=== PATIENT | female | born 1970 | race Caucasian/White ===

== ENCOUNTER 2020-01-08 21:50 | Emergency (ER) | payer MEDICARE, OTHER ==
[2020-01-08 22:03] VITALS: TEMP 97.7
[2020-01-08] MEDS ORDERED: IPRATROPIUM-ALBUTEROL 3 ML NEB INHALATION STA (22:24)
[2020-01-08] MEDS ORDERED: predniSONE 20 MG TAB PO STA (22:24)
[2020-01-08] MEDS ORDERED: ALBUTEROL NEBULIZED 2.5 MG/3 ML INHALATION STA (22:24)
[2020-01-08] MEDS ORDERED: SODIUM CHLORIDE 0.9% 500 ML 500 ML IV STA (22:24)
--- NOTE | 2020-01-08 22:31 | ED ---
SOB HPI - General Chief Complaint: Shortness of Breath Stated Complaint: COPD Issue Time Seen by Provider: 01/08/20 22:06 Source: patient Mode of arrival: ambulatory Limitations: no limitations - History of Present Illness Initial Comments: This patient is a 49-year-old woman who presents to be evaluated for which she is calling flareup of her COPD. She states that over proximally past 2-3 days she has noted an increase in wheezing, shortness of breath, and having more frequent and productive cough. She describes the sputum as white to yellow. St ates that she evaluation by her physician and was prescribed antibiotics including Ceftin and azithromycin, she had albuterol and a dose of steroid. MD Complaint: shortness of breath, cough Onset/Timin -: days(s) Severity scale (1-10): 0 Consistency: constant Improves With: nothing Worsens With: nothing Known History Of: COPD Associated Symptoms: cough, sputum production Treatments Prior to Arrival: none - Related Data Home Oxygen Therapy: No Previous Rx's Medication Instructions Recorded Albuterol Inhaler [Ventolin Hfa 2 puff INHALATION Q4HR PRN #1 01/09/20 Inhaler] inhaler predniSONE 60 mg PO DAILY #30 tab 01/09/20 Allergies Allergy/AdvReac Type Severity Reaction Status Date / Time doxycycline Allergy Rash/Hives Verified 01/08/20 22:00 Review of Systems ROS Statement: Those systems with pertinent positive or pertinent negative responses have been documented in the HPI. ROS Other: All systems not noted in ROS Statement are negative. Constitutional: Denies: fever, chills Respiratory: Reports: cough, dyspnea, wheezes Cardiovascular: Denies: chest pain, palpitations, edema, syncope Gastrointestinal: Denies: abdominal pain, nausea, vomiting, diarrhea, melena, hematochezia Genitourinary: Denies: dysuria, hematuria Musculoskeletal: Denies: back pain Skin: Denies: rash Neurological: Denies: headache Past Medical History Past Medical History: COPD History of Any Multi-Drug Resistant Organisms: None Reported Past Surgical History: Section Smoking Status: Current every day smoker Past Alcohol Use History: None Reported Past Drug Use History: None Reported General Exam Limitations: no limitations General appearance: alert, in no apparent distress Head exam: Present: atraumatic, normocephalic Eye exam: Present: normal appearance. Absent: scleral icterus, conjunctival injection Respiratory exam: Present: wheezes. Absent: respiratory distress, rales, rhonchi, stridor, accessory muscle use, decreased breath sounds, prolonged exp iratory Cardiovascular Exam: Present: regular rate, normal rhythm, normal heart sounds. Absent: systolic murmur, diastolic murmur, rubs, gallop GI/Abdominal exam: Present: soft. Absent: distended, tenderness, guarding, rebound, rigid, mass Extremities exam: Present: normal inspection, normal capillary refill. Absent: pedal edema, calf tenderness Back exam: Present: normal inspection. Absent: CVA tenderness (R), CVA tenderness (L) Neurological exam: Present: alert Skin exam: Present: warm, dry, intact, normal color. Absent: rash Course Vital Signs 01/08/20 01/08/20 01/08/20 21:58 22:34 22:51 Temperature 97.7 F Pulse Rate 93 92 Respiratory 18 22 Rate Blood Pressure 120/79 O2 Sat by Pulse 89 L Oximetry 01/08/20 23:02 Temperature Pulse Rate 99 Respiratory Rate Blood Pressure O2 Sat by Pulse Oximetry Medical Decision Making - Lab Data Result diagrams: 01/08/20 22:36 01/08/20 22:36 Lab Results 01/08/20 01/08/20 01/08/20 Range/Units 22:36 22:36 22:36 WBC 12.6 H (3.8-10.6) k/uL RBC 5.78 H (3.80-5.40) m/uL Hgb 16.0 (11.4-16.0) gm/dL Hct 49.6 H (34.0-46.0) % MCV 85.9 (80.0-100.0) fL MCH 27.6 (25.0-35.0) pg MCHC 32.2 (31.0-37.0) g/dL RDW 14.2 (11.5-15.5) % Plt Count 262 (150-450) k/uL Neutrophils % 91 % Lymphocytes % 6 % Monocytes % 1 % Eosinophils % 1 % Basophils % 1 % Neutrophils # 11.4 H (1.3-7.7) k/uL Lymphocytes # 0.7 L (1.0-4.8) k/uL Monocytes # 0.1 (0-1.0) k/uL Eosinophils # 0.1 (0-0.7) k/uL Basophils # 0.1 (0-0.2) k/uL Sodium 135 L (137-145) mmol/L Potassium 4.4 (3.5-5.1) mmol/L Chloride 103 (98-107) mmol/L Carbon Dioxide 26 (22-30) mmol/L Anion Gap 6 mmol/L BUN 12 (7-17) mg/dL Creatinine 1.19 H (0.52-1.04) mg/dL Est GFR (CKD-EPI)AfAm 62 (>60 ml/min/1.73 sqM) Est GFR (CKD-EPI)NonAf 54 (>60 ml/min/1.73 sqM) Glucose 140 H (74-99) mg/dL Plasma Lactic Acid Puma 1.2 (0.7-2.0) mmol/L Calcium 9.6 (8.4-10.2) mg/dL Total Bilirubin 0.3 (0.2-1.3) mg/dL AST 22 (14-36) U/L ALT 14 (4-34) U/L Alkaline Phosphatase 79 (38-126) U/L Troponin I (0.000-0.034) ng/mL NT-Pro-B Natriuret Pep pg/mL Total Protein 7.1 (6.3-8.2) g/dL Albumin 4.3 (3.5-5.0) g/dL 01/08/20 01/08/20 Range/Units 22:36 22:36 WBC (3.8-10.6) k/uL RBC (3.80-5.40) m/uL Hgb (11.4-16.0) gm/dL Hct (34.0-46.0) % MCV (80.0-100.0) fL MCH (25.0-35.0) pg MCHC (31.0-37.0) g/dL RDW (11.5-15.5) % Plt Count (150-450) k/uL Neutrophils % % Lymphocytes % % Monocytes % % Eosinophils % % Basophils % % Neutrophils # (1.3-7.7) k/uL Lymphocytes # (1.0-4.8) k/uL Monocytes # (0-1.0) k/uL Eosinophils # (0-0.7) k/uL Basophils # (0-0.2) k/uL Sodium (137-145) mmol/L Potassium (3.5-5.1) mmol/L Chloride (98-107) mmol/L Carbon Dioxide (22-30) mmol/L Anion Gap mmol/L BUN (7-17) mg/dL Creatinine (0.52-1.04) mg/dL Est GFR (CKD-EPI)AfAm (>60 ml/min/1.73 sqM) Est GFR (CKD-EPI)NonAf (>60 ml/min/1.73 sqM) Glucose (74-99) mg/dL Plasma Lactic Acid Puma (0.7-2.0) mmol/L Calcium (8.4-10.2) mg/dL Total Bilirubin (0.2-1.3) mg/dL AST (14-36) U/L ALT (4-34) U/L Alkaline Phosphatase (38-126) U/L Troponin I <0.012 (0.000-0.034) ng/mL NT-Pro-B Natriuret Pep 23 pg/mL Total Protein (6.3-8.2) g/dL Albumin (3.5-5.0) g/dL - EKG Data -: EKG Interpreted by Ms EKG shows normal: sinus rhythm, axis (Normal), intervals (Normal), QRS complexes (Normal), ST-T waves (Normal) Rate: normal (92 bpm) Interpretation: normal EKG Disposition Clinical Impression: COPD exacerbation Disposition: HOME SELF-CARE Condition: Good Instructions (If sedation given, give patient instructions): COPD (Chronic Obstructive Pulmonary Disease) (ED) Prescriptions: predniSONE 60 mg PO DAILY #30 tab Albuterol Inhaler [Ventolin Hfa Inhaler] 2 puff INHALATION Q4HR PRN #1 inhaler PRN Reason: Wheezing Is patient prescribed a controlled substance at d/c from ED?: No Referrals: None,Stated [REFERRING] - 1-2 days
[2020-01-08 22:46] LABS: Basophils # (A) 0.1 k/uL (0-0.2); Basophils % (A) 1 %; Eosinophils # (A) 0.1 k/uL (0-0.7); Eosinophils % (A) 1 %; HCT 49.6 % (34.0-46.0); Lymphocytes # (A) 0.7 k/uL (1.0-4.8); Lymphocytes % (A) 6 %; MCH 27.6 pg (25.0-35.0); MCHC 32.2 g/dL (31.0-37.0); MCV 85.9 fL (80.0-100.0); Monocytes # (A) 0.1 k/uL (0-1.0); Monocytes % (A) 1 %; Neutrophils # (A) 11.4 k/uL (1.3-7.7); Neutrophils % (A) 91 %; Platelet Count 262 k/uL (150-450); RBC 5.78 m/uL (3.80-5.40); RDW 14.2 % (11.5-15.5); WBC 12.6 k/uL (3.8-10.6)
[2020-01-08 22:57] LABS: Albumin 4.3 g/dL (3.5-5.0); Calcium 9.6 mg/dL (8.4-10.2); Potassium 4.4 mmol/L (3.5-5.1); Total Bilirubin 0.3 mg/dL (0.2-1.3); Total Protein 7.1 g/dL (6.3-8.2)
--- NOTE | 2020-01-08 22:59 | XR ---
EXAMINATION TYPE: XR chest 2V DATE OF EXAM: 01/08/2020 COMPARISON: NONE HISTORY: Difficulty breathing TECHNIQUE: 2 views FINDINGS: Heart and mediastinum are normal. Lungs are clear. Diaphragm is normal. Bony thorax appears normal. There are chest leads. IMPRESSION: Normal chest.
[2020-01-09 00:38] VITALS: BP 105/75; PULSE 104; RESP 18
== END 2020-01-09 00:39 | disposition home or self-care (01) ==
LOC: EC 21:50
DX: J44.1 Chronic obstructive pulmonary disease with (acute) exacerbation (principal); F17.200 Nicotine dependence, unspecified, uncomplicated; Z88.1 Allergy status to other antibiotic agents
CPT/HCPCS: 99285; 96360; 36415; 94640; 93005; 83880; 80053; 83605; 84484; 85025; 71046; J7512

== ENCOUNTER 2020-05-22 22:36 | Observation (INO) | payer MEDICARE, OTHER ==
[2020-05-22] MEDS ORDERED: IPRATROPIUM-ALBUTEROL 3 ML NEB INHALATION STA (22:55)
[2020-05-22] MEDS ORDERED: ALBUTEROL NEBULIZED 2.5 MG/3 ML INHALATION STA (22:55)
[2020-05-22] MEDS ORDERED: predniSONE 20 MG TAB PO STA (22:56)
--- NOTE | 2020-05-22 23:00 | ED ---
SOB HPI - General Chief Complaint: Shortness of Breath Stated Complaint: FARZAD Time Seen by Provider: 05/22/20 22:42 Source: patient, EMS Mode of arrival: EMS Limitations: no limitations - History of Present Illness Initial Comments: Patient's 50-year-old woman history of COPD, who presents with what she believes is a flareup of the same. She states that 2-3 days ago she started having increasing wheeze, shortness of breath, a little bit of cough, and a tight feeling in her chest. Patient has not noted fever or chills. No chest pain. No change in urination or bowel movements. No leg pain or swelling. MD Complaint: shortness of breath, cough Onset/Timin -: days(s) Severity scale (1-10): 0 Consistency: constant Improves With: nothing Worsens With: nothing Known History Of: COPD Associated Symptoms: cough Treatments Prior to Arrival: oxygen - Related Data Home Oxygen Therapy: No Home Medications Medication Instructions Recorded Confirmed Advair Unknown Dose 1 puff INHALATION RT-DAILY 05/22/20 05/22/20 Albuterol Inhaler [Ventolin Hfa 2 puff INHALATION RT-Q4H PRN 05/22/20 05/22/20 Inhaler] Albuterol Nebulized [Ventolin 2.5 mg INHALATION RT-QID PRN 05/22/20 05/22/20 Nebulized] Anxiety Unknown 1 tab PO DAILY PRN 05/22/20 05/22/20 Ergocalciferol (Vitamin D2) 1,250 mcg PO Q7D 05/22/20 05/22/20 [Vitamin D2 (50,000 Iu)] Ibuprofen [Motrin Ib] 200 mg PO Q8H PRN 05/22/20 05/22/20 Paxil Unknown Dose 1 tab PO DAILY 05/22/20 05/22/20 Tessalon Perles Unknown Dose 1 tab PO DAILY PRN 05/22/20 05/22/20 Allergies Allergy/AdvReac Type Severity Reaction Status Date / Time doxycycline Allergy Rash/Hives Verified 05/22/20 23:05 Review of Systems ROS Statement: Those systems with pertinent positive or pertinent negative responses have been documented in the HPI. ROS Other: All systems not noted in ROS Statement are negative. Constitutional: Denies: fever, chills ENT: Denies: throat pain, congestion Respiratory: Reports: cough, dyspnea, wheezes Cardiovascular: Denies: chest pain, palpitations, orthopnea, edema, syncope Gastrointestinal: Denies: abdominal pain, nausea, vomiting, diarrhea, melena, hematochezia Genitourinary: Denies: dysuria, hematuria Musculoskeletal: Denies: back pain Skin: Denies: rash Neurological: Denies: headache, weakness, numbness Past Medical History Past Medical History: COPD History of Any Multi-Drug Resistant Organisms: None Reported Past Surgical History: Section Smoking Status: Current every day smoker Past Alcohol Use History: None Reported Past Drug Use History: None Reported - Past Family History Mother Additional Family Medical History / Comment(s): ETOH depression General Exam Limitations: no limitations General appearance: alert, in no apparent distress Head exam: Present: atraumatic, normocephalic Eye exam: Present: normal appearance. Absent: scleral icterus, conjunctival injection ENT exam: Present: normal oropharynx Neck exam: Present: normal inspection Respiratory exam: Present: respiratory distress, wheezes, accessory muscle use, decreased breath sounds, prolonged expiratory. Absent: rales, rhonchi, stridor Cardiovascular Exam: Present: normal rhythm, tachycardia, normal heart sounds. Absent: systolic murmur, diastolic murmur, rubs, gallop GI/Abdominal exam: Present: soft. Absent: distended, tenderness, guarding, rebound, rigid, mass Extremities exam: Present: normal inspection, normal capillary refill. Absent: pedal edema, calf tenderness Back exam: Present: normal inspection. Absent: CVA tenderness (R), CVA tenderness (L) Neurological exam: Present: alert Skin exam: Present: warm, dry, intact, normal color. Absent: rash Course Vital Signs 05/22/20 05/22/20 05/22/20 22:38 22:43 23:00 Temperature 97.6 F Pulse Rate 110 H Respiratory 22 20 Rate Blood Pressure 131/100 131/100 118/87 O2 Sat by Pulse 98 98 96 Oximetry 05/22/20 05/22/20 05/22/20 23:13 23:21 23:30 Temperature Pulse Rate 110 H 128 H 106 H Respiratory 18 Rate Blood Pressure 136/109 O2 Sat by Pulse 98 Oximetry 05/23/20 05/23/20 05/23/20 00:47 00:51 01:02 Temperature Pulse Rate 124 H 120 H 100 Respiratory 18 Rate Blood Pressure 117/86 O2 Sat by Pulse 96 Oximetry 05/23/20 05/23/20 05/23/20 02:00 03:00 03:39 Temperature 97.8 F Pulse Rate 101 H 97 97 Respiratory 18 18 18 Rate Blood Pressure 121/76 O2 Sat by Pulse 96 Oximetry Medical Decision Making - Lab Data Result diagrams: 05/22/20 23:18 05/23/20 00:01 Lab Results 05/22/20 05/22/20 05/22/20 Range/Units 23:18 23:18 23:18 WBC 12.7 H (3.8-10.6) k/uL RBC 5.45 H (3.80-5.40) m/uL Hgb 15.6 (11.4-16.0) gm/dL Hct 48.2 H (34.0-46.0) % MCV 88.4 (80.0-100.0) fL MCH 28.6 (25.0-35.0) pg MCHC 32.4 (31.0-37.0) g/dL RDW 13.3 (11.5-15.5) % Plt Count 222 (150-450) k/uL MPV 10.8 Neutrophils % 64 % Lymphocytes % 21 % Monocytes % 6 % Eosinophils % 6 % Basophils % 1 % Neutrophils # 8.2 H (1.3-7.7) k/uL Lymphocytes # 2.7 (1.0-4.8) k/uL Monocytes # 0.8 (0-1.0) k/uL Eosinophils # 0.8 H (0-0.7) k/uL Basophils # 0.1 (0-0.2) k/uL PT 10.0 (9.0-12.0) sec INR 0.9 (<1.2) APTT 23.3 (22.0-30.0) sec D-Dimer 0.36 (<0.60) mg/L FEU Sodium (137-145) mmol/L Potassium (3.5-5.1) mmol/L Chloride (98-107) mmol/L Carbon Dioxide (22-30) mmol/L Anion Gap mmol/L BUN (7-17) mg/dL Creatinine (0.52-1.04) mg/dL Est GFR (CKD-EPI)AfAm (>60 ml/min/1.73 sqM) Est GFR (CKD-EPI)NonAf (>60 ml/min/1.73 sqM) Glucose (74-99) mg/dL Plasma Lactic Acid Puma 1.1 (0.7-2.0) mmol/L Calcium (8.4-10.2) mg/dL Total Bilirubin (0.2-1.3) mg/dL AST (14-36) U/L ALT (4-34) U/L Alkaline Phosphatase (38-126) U/L Troponin I (0.000-0.034) ng/mL NT-Pro-B Natriuret Pep pg/mL Total Protein (6.3-8.2) g/dL Albumin (3.5-5.0) g/dL 05/22/20 05/23/20 05/23/20 Range/Units 23:18 00:01 00:01 WBC (3.8-10.6) k/uL RBC (3.80-5.40) m/uL Hgb (11.4-16.0) gm/dL Hct (34.0-46.0) % MCV (80.0-100.0) fL MCH (25.0-35.0) pg MCHC (31.0-37.0) g/dL RDW (11.5-15.5) % Plt Count (150-450) k/uL MPV Neutrophils % % Lymphocytes % % Monocytes % % Eosinophils % % Basophils % % Neutrophils # (1.3-7.7) k/uL Lymphocytes # (1.0-4.8) k/uL Monocytes # (0-1.0) k/uL Eosinophils # (0-0.7) k/uL Basophils # (0-0.2) k/uL PT (9.0-12.0) sec INR (<1.2) APTT (22.0-30.0) sec D-Dimer (<0.60) mg/L FEU Sodium 137 (137-145) mmol/L Potassium 4.1 (3.5-5.1) mmol/L Chloride 107 (98-107) mmol/L Carbon Dioxide 24 (22-30) mmol/L Anion Gap 6 mmol/L BUN 12 (7-17) mg/dL Creatinine 0.63 (0.52-1.04) mg/dL Est GFR (CKD-EPI)AfAm >90 (>60 ml/min/1.73 sqM) Est GFR (CKD-EPI)NonAf >90 (>60 ml/min/1.73 sqM) Glucose 114 H (74-99) mg/dL Plasma Lactic Acid Puma (0.7-2.0) mmol/L Calcium 9.4 (8.4-10.2) mg/dL Total Bilirubin 0.5 (0.2-1.3) mg/dL AST 21 (14-36) U/L ALT 11 (4-34) U/L Alkaline Phosphatase 63 (38-126) U/L Troponin I <0.012 (0.000-0.034) ng/mL NT-Pro-B Natriuret Pep 34 pg/mL Total Protein 6.6 (6.3-8.2) g/dL Albumin 3.7 (3.5-5.0) g/dL - EKG Data -: EKG Interpreted by Me EKG shows normal: sinus rhythm, axis (Normal), intervals (Normal), QRS complexes (Possible old septal infarct.), ST-T waves (Normal) Rate: tachycardia (Rate 110 bpm) Disposition Clinical Impression: COPD exacerbation Disposition: ADMITTED IP TO THIS HOSP Condition: Good Is patient prescribed a controlled substance at d/c from ED?: No
--- NOTE | 2020-05-22 23:19 | XR ---
EXAMINATION TYPE: XR chest 2V DATE OF EXAM: 05/22/2020 COMPARISON: 01/08/2020 HISTORY: Short of breath TECHNIQUE: FINDINGS: Heart and mediastinum are normal. Lungs are clear. Diaphragm is normal. Bony thorax is inta ct. IMPRESSION: Normal chest. No change.
[2020-05-22 23:27] LABS: Basophils # (A) 0.1 k/uL (0-0.2); Basophils % (A) 1 %; Eosinophils # (A) 0.8 k/uL (0-0.7); Eosinophils % (A) 6 %; HCT 48.2 % (34.0-46.0); HGB 15.6 gm/dL (11.4-16.0); Lymphocytes # (A) 2.7 k/uL (1.0-4.8); Lymphocytes % (A) 21 %; MCH 28.6 pg (25.0-35.0); MCHC 32.4 g/dL (31.0-37.0); MCV 88.4 fL (80.0-100.0); Mean Platelet Volume 10.8; Monocytes # (A) 0.8 k/uL (0-1.0); Monocytes % (A) 6 %; Neutrophils # (A) 8.2 k/uL (1.3-7.7); Neutrophils % (A) 64 %; Platelet Count 222 k/uL (150-450); RBC 5.45 m/uL (3.80-5.40); RDW 13.3 % (11.5-15.5); WBC 12.7 k/uL (3.8-10.6)
[2020-05-22 23:50] LABS: D-Dimer 0.36 mg/L FEU (<0.60); INR 0.9 (<1.2); Partial Thromboplastin Time 23.3 sec (22.0-30.0)
[2020-05-23 00:31] LABS: ALT 11 U/L (4-34); AST 21 U/L (14-36); African American GFR (CKD) >90 (>60 ml/min/1.73 sqM); Albumin 3.7 g/dL (3.5-5.0); Alkaline Phosphatase 63 U/L (38-126); Anion Gap 6 mmol/L; Blood Urea Nitrogen 12 mg/dL (7-17); Calcium 9.4 mg/dL (8.4-10.2); Carbon Dioxide 24 mmol/L (22-30); Chloride 107 mmol/L (98-107); Glucose 114 mg/dL (74-99); Non-African American GFR(CKD) >90 (>60 ml/min/1.73 sqM); Potassium 4.1 mmol/L (3.5-5.1); Sodium 137 mmol/L (137-145); Total Bilirubin 0.5 mg/dL (0.2-1.3); Total Protein 6.6 g/dL (6.3-8.2)
[2020-05-23] MEDS ORDERED: ALBUTEROL NEBULIZED 2.5 MG/3 ML INHALATION STA (00:32)
[2020-05-23] MEDS ORDERED: ALBUTEROL NEBULIZED 2.5 MG/3 ML INHALATION PRN (02:32)
[2020-05-23] MEDS ORDERED: BENZONATATE 100 MG CAP PO PRN ×2 (06:00→21:00)
[2020-05-23] MEDS: IPRATROPIUM-ALBUTEROL 3 ML NEB INHALATION SCH ×4 (07:08→19:50)
[2020-05-23] MEDS ORDERED: SYMBICORT 160-4.5 MCG INHALER INHALATION SCH (08:00)
[2020-05-23] MEDS ORDERED: IBUPROFEN 200 MG TAB PO PRN (08:36)
[2020-05-23] MEDS ORDERED: ERGOCALCIFEROL 1,250 MCG (50,000 IU) CAPSULE PO SCH (09:00)
[2020-05-23] MEDS ORDERED: PAROXETINE PO SCH (09:00)
[2020-05-23] MEDS: predniSONE 20 MG TAB PO SCH (09:39)
[2020-05-23] MEDS ORDERED: tiZANidine 4 MG TAB PO PRN (09:44)
[2020-05-23] MEDS: PARoxetine 20 MG TAB PO SCH (10:19)
--- NOTE | 2020-05-23 12:52 | P.HPIM ---
History of Present Illness Patient is a pleasant 49-year-old female came in with the complaints of shortness of breath has been going on for around 2-3 days with whitish sputum production chest x-ray did not show pneumonia patient denied any fever chills can use to smoke cut down smoking quite a bit since last week didn't smoke for about a week. Patient's symptoms gotten much worse because of which patient came to the hospital was wheezing significantly on admission given steroids patient was started on oral steroids now. Patient has significant clinical improvement patient is on 4 L on admission presently on 3 L. Patient denied any fever chills chest pain. Review of Systems REVIEW OF SYSTEMS: CONSTITUTIONAL: No fever, no malaise, no fatigue. HEENT: No recent visual problems or hearing problems. Denied any sore throat. CARDIOVASCULAR: No chest pain, orthopnea, PND, no palpitations, no syncope. PULMONARY: no hemoptysis. GASTROINTESTINAL: No diarrhea, no nausea, no vomiting, no abdominal pain. NEUROLOGICAL: No headaches, no weakness, no numbness. HEMATOLOGICAL: Denies any bleeding or petechiae. GENITOURINARY: Denies any burning micturition, frequency, or urgency. MUSCULOSKELETAL/RHEUMATOLOGICAL: Denies any joint pain, swelling, or any muscle pain. ENDOCRINE: Denies any polyuria or polydipsia. The rest of the 14-point review of systems is negative. Past Medical History Past Medical History: COPD Additional Past Medical History / Comment(s): Psorisis History of Any Multi-Drug Resistant Organisms: None Reported Past Surgical History: Section Past Anesthesia/Blood Transfusion Reactions: No Reported Reaction Smoking Status: Current every day smoker Past Alcohol Use History: None Reported Past Drug Use History: None Reported - Past Family History Mother Additional Family Medical History / Comment(s): ETOH depression Medications and Allergies Home Medications Medication Instructions Recorded Confirmed Type Albuterol Inhaler [Ventolin Hfa 2 puff INHALATION RT-Q4H PRN 05/22/20 05/23/20 History Inhaler] Albuterol Nebulized [Ventolin 2.5 mg INHALATION RT-QID PRN 05/22/20 05/23/20 History Nebulized] Ergocalciferol (Vitamin D2) 1,250 mcg PO MOFR 05/22/20 05/23/20 History [Vitamin D2 (50,000 Iu)] Ibuprofen [Motrin Ib] 200 mg PO Q8H PRN 05/22/20 05/23/20 History Benzonatate [Tessalon Perles] 100 mg PO HS PRN 05/23/20 05/23/20 History Fluticasone/Salmeterol [Advair 1 puff INHALATION RT-BID 05/23/20 05/23/20 History 250-50 Diskus] PARoxetine [Paxil] 20 mg PO DAILY 05/23/20 05/23/20 History hydrOXYzine pamoate [Vistaril] 25 mg PO TID 05/23/20 05/23/20 History tiZANidine [Zanaflex] 2 mg PO DAILY PRN 05/23/20 05/23/20 History Allergies Allergy/AdvReac Type Severity Reaction Status Date / Time doxycycline Allergy Rash/Hives Verified 05/22/20 23:05 Physical Exam Vitals: Vital Signs Temp Pulse Pulse Resp BP BP Pulse Ox 05/23/20 12:02 98.1 F 89 20 105/69 94 L 05/23/20 11:30 83 20 93 L 05/23/20 10:46 108 H 05/23/20 10:41 105 H 05/23/20 10:13 90 20 92 L 05/23/20 09:40 20 05/23/20 08:56 97.8 F 83 16 117/75 05/23/20 07:17 108 H 05/23/20 07:09 96 05/23/20 05:03 20 05/23/20 04:29 97.6 F 86 18 122/78 97 05/23/20 03:39 97.8 F 97 18 121/76 96 05/23/20 03:00 97 18 05/23/20 02:00 101 H 18 05/23/20 01:02 100 18 117/86 96 05/23/20 00:51 120 H 05/23/20 00:47 124 H 05/22/20 23:30 106 H 18 136/109 98 05/22/20 23:21 128 H 05/22/20 23:13 110 H 05/22/20 23:00 118/87 96 05/22/20 22:43 20 131/100 98 05/22/20 22:38 97.6 F 110 H 22 131/100 98 Intake and Output 05/22/20 05/23/20 05/23/20 22:59 06:59 14:59 Intake Total 237 Balance 237 Intake: Oral 237 Other: Voiding Method Toilet # Voids 1 Weight 62.596 kg 59.3 kg PHYSICAL EXAMINATION: GENERAL: The patient is alert and oriented x3, not in any acute distress. Well developed, well nourished. HEENT: Pupils are round and equally reacting to light. EOMI. No scleral icterus. No conjunctival pallor. Normocephalic, atraumatic. No pharyngeal erythema. No thyromegaly. CARDIOVASCULAR: S1 and S2 present. No murmurs, rubs, or gallops. PULMONARY: Decreased air entry mild expiratory wheezing. ABDOMEN: Soft, nontender, nondistended, normoactive bowel sounds. No palpable organomegaly. MUSCULOSKELETAL: No joint swelling or deformity. EXTREMITIES: No cyanosis, clubbing, or pedal edema. NEUROLOGICAL: Gross neurological examination did not reveal any focal deficits. SKIN: No rashes. Results CBC & Chem 7: 05/22/20 23:18 05/23/20 00:01 Labs: Abnormal Lab Results - Last 24 Hours (Table) 05/22/20 05/23/20 Range/Units 23:18 00:01 WBC 12.7 H (3.8-10.6) k/uL RBC 5.45 H (3.80-5.40) m/uL Hct 48.2 H (34.0-46.0) % Neutrophils # 8.2 H (1.3-7.7) k/uL Eosinophils # 0.8 H (0-0.7) k/uL Glucose 114 H (74-99) mg/dL Thrombosis Risk Factor Assmnt - Choose All That Apply Each Factor Represents 1 point: Age 41-60 years, Obesity (BMI >25) Thrombosis Risk Factor Assessment Total Risk Factor Score: 2 Thrombosis Risk Factor Assessment Level: Low Risk Assessment and Plan Plan: 1 acute hypoxic respiratory failure secondary to COPD exacerbation: Patient will be continued on oral steroids continue with inhalational treatments presently on 3 L will try to wean off oxygen if she improves which I'm hoping by tomorrow she can be discharged. -Nicotine use: Counseling was provided -Depression continue with the SSRIs -Psoriasis -GI prophylaxis: Pepcid. -DVT Prophylaxis early ambulation
[2020-05-23 14:23] VITALS: BMI 25.5
[2020-05-23] MEDS: SYMBICORT 80-4.5 MCG INHALER INHALATION SCH (19:50)
[2020-05-23] MEDS: FAMOTIDINE 20 MG TAB PO SCH (21:25)
[2020-05-23] MEDS ORDERED: ACETAMINOPHEN TAB 325 MG TAB PO PRN (21:28)
[2020-05-23] MEDS ORDERED: guaiFENesin-DM 100-10MG/5ML 10 ML CUP PO PRN (21:28)
[2020-05-24] MEDS: SYMBICORT 80-4.5 MCG INHALER INHALATION SCH (07:35)
[2020-05-24] MEDS: IPRATROPIUM-ALBUTEROL 3 ML NEB INHALATION SCH ×2 (07:35→11:23)
[2020-05-24] MEDS ORDERED: [UNRECOGNIZED DRUG - OTHER] INHALATION SCH (08:00)
[2020-05-24] MEDS: PARoxetine 20 MG TAB PO SCH (08:18)
[2020-05-24] MEDS: FAMOTIDINE 20 MG TAB PO SCH (08:18)
[2020-05-24] MEDS: predniSONE 20 MG TAB PO SCH (08:18)
[2020-05-24 12:04] VITALS: BP 105/69; PULSE 75; RESP 18; TEMP 98.1
--- NOTE | 2020-05-24 15:48 | P.DS ---
Providers Date of admission: 05/23/20 02:32 Expected date of discharge: 05/24/20 Attending physician: Eleno Woodson MD Primary care physician: Michelle Moncada Hospital Course: Final diagnosis -acute hypoxic respiratory failure secondary to COPD exacerbation -Nicotine use: Counseling was provided -Depression -Psoriasis -GI prophylaxis -DVT Prophylaxis Discharge disposition Patient is being discharged in a stable condition with guarded prognosis to home. Patient will follow-up with Dr. Moncada in the outpatient setting upon discharge. Patient also continue with the prednisone taper in the outpatient setting. Prescriptions sent to her pharmacy for refills on inhalers Total time taken is greater than 35 minutes. Hospital course This is a 49-year-old female who was recently admitted with shortness of breath and was being closely monitored. Patient had significant wheezing along with cough and was initiated on steroids. Patient will continue with oral prednisone taper in the outpatient setting. Continued on breathing treatments and improved significantly. She continues to be somewhat short of breath with exertion although is not requiring oxygen. Patient on admission was on 2 L of oxygen although does not wear this at home. Covid 19 testing was negative. She states she recently quit smoking and discussed with her at length about continuing to refrain from any tobacco use and tobacco smoke from others. She verbalized understanding. Patient states she does have nebulizers and treatments although needs refills on inhalers. Prescriptions provided. Patient instructed to follow-up with primary care provider upon discharge. Currently no reports of chest pain, shortness of breath, or palpitations. Patient is afebrile. No reports of nausea or vomiting and patient is tolerating diet. Patient will be discharged home today. On exam vital signs are stable. Temp is 98.1F, pulse is 75, respirations are 18, blood pressure is 105/69, oxygen saturation is 92% on room air. Cardio S1, S2 are muffled. Respiratory system shows diminished breath sounds at the bases with some mild expiratory wheezing noted. Abdomen is soft and nontender. Nervous system shows no focal deficits. Please refer to medication reconciliation sheet for a list of medications. Patient Condition at Discharge: Good Plan - Discharge Summary New Discharge Prescriptions: New Acetaminophen Tab [Tylenol] 325 mg PO Q6HR PRN tab PRN Reason: Fever And/ Or Pain predniSONE 10 mg PO DIRECTED #30 tab Continue Ibuprofen [Motrin Ib] 200 mg PO Q8H PRN PRN Reason: Pain Or Fever > 100.5 Ergocalciferol (Vitamin D2) [Vitamin D2 (50,000 Iu)] 1,250 mcg PO MOFR Albuterol Nebulized [Ventolin Nebulized] 2.5 mg INHALATION RT-QID PRN PRN Reason: Shortness Of Breath tiZANidine [Zanaflex] 2 mg PO DAILY PRN PRN Reason: Muscle Spasm hydrOXYzine pamoate [Vistaril] 25 mg PO TID PARoxetine [Paxil] 20 mg PO DAILY Benzonatate [Tessalon Perles] 100 mg PO HS PRN PRN Reason: Cough Fluticasone/Salmeterol [Advair 250-50 Diskus] 1 puff INHALATION RT-BID 30 Days #1 device Changed Albuterol Inhaler [Ventolin Hfa Inhaler] 2 puff INHALATION RT-Q4H PRN 30 Days #1 puff PRN Reason: Wheezing Discharge Medication List Albuterol Nebulized [Ventolin Nebulized] 2.5 mg INHALATION RT-QID PRN 05/22/20 [History] Ergocalciferol (Vitamin D2) [Vitamin D2 (50,000 Iu)] 1,250 mcg PO MOFR 05/22/20 [History] Ibuprofen [Motrin Ib] 200 mg PO Q8H PRN 05/22/20 [History] Benzonatate [Tessalon Perles] 100 mg PO HS PRN 05/23/20 [History] PARoxetine [Paxil] 20 mg PO DAILY 05/23/20 [History] hydrOXYzine pamoate [Vistaril] 25 mg PO TID 05/23/20 [History] tiZANidine [Zanaflex] 2 mg PO DAILY PRN 05/23/20 [History] Acetaminophen Tab [Tylenol] 325 mg PO Q6HR PRN tab 05/24/20 [Rx] Albuterol Inhaler [Ventolin Hfa Inhaler] 2 puff INHALATION RT-Q4H PRN 30 Days #1 puff 05/24/20 [Rx] Fluticasone/Salmeterol [Advair 250-50 Diskus] 1 puff INHALATION RT-BID 30 Days #1 device 05/24/20 [Rx] predniSONE 10 mg PO DIRECTED #30 tab 05/24/20 [Rx] Follow up Appointment(s)/Referral(s): Michelle Moncada MD [Primary Care Provider] - 1-2 days Activity/Diet/Wound Care/Special Instructions: Activity Limited until follow-up Continue with prednisone taper Continue to avoid tobacco use and tobacco smoke Follow-up with primary care provider upon discharge,call for appt ( pt called the Dr Office and they are to call her back with an appt time for this week) Last received prednisone dose @ 0818 last received an updraft at 1130 continue good hand washing at home. regular diet as tolerated. drink fluids. Discharge Disposition: HOME SELF-CARE
== END 2020-05-24 12:33 | disposition home or self-care (01) ==
LOC: EC 22:36 → 6PED 05-23 02:32 → INTOOBSV 05-23 02:32 → 6PED 05-23 03:54 → UNDODISIN 05-24 12:33
PROVIDERS: ADMIT Internal Medicine; ATTEND Internal Medicine
DX: J44.1 Chronic obstructive pulmonary disease with (acute) exacerbation (principal); J96.01 Acute respiratory failure with hypoxia; Z20.828 Contact with and (suspected) exposure to other viral communicable diseases; F32.9 Major depressive disorder, single episode, unspecified; L40.9 Psoriasis, unspecified; E66.9 Obesity, unspecified; Z68.25 Body mass index [BMI] 25.0-25.9, adult; Z98.891 History of uterine scar from previous surgery; F17.200 Nicotine dependence, unspecified, uncomplicated; Z81.1 Family history of alcohol abuse and dependence; Z81.8 Family history of other mental and behavioral disorders; Z79.51 Long term (current) use of inhaled steroids; Z79.899 Other long term (current) drug therapy; Z88.1 Allergy status to other antibiotic agents
CPT/HCPCS: 99285; 36415 ×2; 94640 ×5; 94760; 93005; 85379; 83880; 80053; 83605; 84484; 85025; 85610; 85730; 87635; 71046; G0378 ×2; J7512 ×2

== ENCOUNTER 2020-08-29 07:44 | Observation (INO) | payer MEDICARE, OTHER ==
[2020-08-29 07:49] VITALS: RESP 18; TEMP 97.5
[2020-08-29] MEDS ORDERED: methylPREDNISolone SOD SUCCI 125 MG/2 ML VIAL IV STA (08:02)
[2020-08-29] MEDS ORDERED: IPRATROPIUM-ALBUTEROL 3 ML NEB INHALATION STA ×2 (08:02→10:16)
[2020-08-29 08:33] LABS: Basophils # (A) 0.1 k/uL (0-0.2); Basophils % (A) 1 %; Eosinophils # (A) 0.8 k/uL (0-0.7); Eosinophils % (A) 10 %; HCT 47.7 % (34.0-46.0); HGB 16.3 gm/dL (11.4-16.0); Lymphocytes % (A) 25 %; MCH 30.3 pg (25.0-35.0); MCHC 34.2 g/dL (31.0-37.0); MCV 88.3 fL (80.0-100.0); Mean Platelet Volume 9.1; Monocytes # (A) 0.7 k/uL (0-1.0); Monocytes % (A) 9 %; Neutrophils # (A) 4.3 k/uL (1.3-7.7); Neutrophils % (A) 53 %; Platelet Count 232 k/uL (150-450); RDW 13.3 % (11.5-15.5); WBC 8.1 k/uL (3.8-10.6)
--- NOTE | 2020-08-29 08:35 | XR ---
EXAMINATION TYPE: XR chest 2V DATE OF EXAM: 08/29/2020 COMPARISON: Chest x-ray May 22, 2020 HISTORY: Cough and shortness of breath. History of COPD. TECHNIQUE: Frontal and lateral views of the chest are obtained. FINDINGS: There is no new suspicious focal air space opacity, pleural effusion, or pneumothorax seen . The cardiac silhouette size remains within normal limits. The osseous structures are intact. Ove rlying EKG leads noted currently. IMPRESSION: No acute cardiopulmonary process. No significant change from prior.
[2020-08-29 08:48] LABS: ALT 19 U/L (4-34); AST 27 U/L (14-36); African American GFR (CKD) >90 (>60 ml/min/1.73 sqM); Albumin 3.6 g/dL (3.5-5.0); Alkaline Phosphatase 67 U/L (38-126); Anion Gap 5 mmol/L; Blood Urea Nitrogen 12 mg/dL (7-17); Calcium 9.3 mg/dL (8.4-10.2); Carbon Dioxide 25 mmol/L (22-30); Chloride 107 mmol/L (98-107); Glucose 94 mg/dL (74-99); Non-African American GFR(CKD) >90 (>60 ml/min/1.73 sqM); Potassium 4.4 mmol/L (3.5-5.1); Sodium 137 mmol/L (137-145); Total Bilirubin 0.6 mg/dL (0.2-1.3); Total Protein 6.5 g/dL (6.3-8.2)
[2020-08-29 09:00] LABS: INR 0.9 (<1.2); Partial Thromboplastin Time 22.3 sec (22.0-30.0); Prothrombin Time 9.5 sec (9.0-12.0)
[2020-08-29] MEDS ORDERED: IPRATROPIUM-ALBUTEROL 3 ML NEB INHALATION PRN (11:33)
--- NOTE | 2020-08-29 11:36 | ED ---
SOB HPI - General Chief Complaint: Shortness of Breath Stated Complaint: COPD Time Seen by Provider: 08/29/20 07:54 Source: patient Mode of arrival: ambulatory Limitations: no limitations - History of Present Illness Initial Comments: 50-year-old female presenting today for chief complaint of possible COPD exacerbation. Patient states she feels wheezy and tight like her previous COPD exacerbations. Patient states she did a total of 10 nebulized treatments between last night and this morning. Patient states that that helped minimally. Patient denies any chest pressure jaw pain arm pain nausea vomiting fevers she denies any leg swelling hemoptysis calf pain history due to primary embolism. Patient is no distal complaints upon arrival she appears nontoxic in no obvious distress - Related Data Home Medications Medication Instructions Recorded Confirmed Albuterol Nebulized [Ventolin 2.5 mg INHALATION RT-QID PRN 05/22/20 08/29/20 Nebulized] Ergocalciferol (Vitamin D2) 1,250 mcg PO MOFR 05/22/20 08/29/20 [Vitamin D2 (50,000 Iu)] Ibuprofen [Motrin Ib] 400 mg PO Q8H PRN 05/22/20 08/29/20 PARoxetine [Paxil] 20 mg PO HS 05/23/20 08/29/20 Acetaminophen Tab [Tylenol Tab] 500 mg PO Q6H PRN 08/29/20 08/29/20 Penicillin V Potassium [Pen Vee K] 500 mg PO BID 08/29/20 08/29/20 Previous Rx's Medication Instructions Recorded Albuterol Inhaler [Ventolin Hfa 2 puff INHALATION RT-Q4H PRN 30 05/24/20 Inhaler] Days #1 puff Fluticasone/Salmeterol [Advair 1 puff INHALATION RT-BID 30 Days 05/24/20 250-50 Diskus] #1 device Allergies Allergy/AdvReac Type Severity Reaction Status Date / Time doxycycline Allergy Rash/Hives Verified 08/29/20 11:55 Review of Systems ROS Statement: Those systems with pertinent positive or pertinent negative responses have been documented in the HPI. ROS Other: All systems not noted in ROS Statement are negative. Past Medical History Past Medical History: COPD Additional Past Medical History / Comment(s): Psoriasis History of Any Multi-Drug Resistant Organisms: None Reported Past Surgical History: Section Past Anesthesia/Blood Transfusion Reactions: No Reported Reaction Past Psychological History: Anxiety, Depression Smoking Status: Current every day smoker Past Alcohol Use History: None Reported Past Drug Use History: None Reported - Past Family History Mother Additional Family Medical History / Comment(s): ETOH depression General Exam - General Exam Comments Initial Comments: General: The patient is awake and alert, in no distress Eye: Pupils are equal, round and reactive to light, extra-ocular movements are intact. No nystagmus. There is normal conjunctiva bilaterally. No signs of icterus. Ears, nose, mouth and throat: There are moist mucous membranes and no oral lesions. Neck: The neck is supple, there is no tenderness or JVD. Cardiovascular: There is a regular rate and rhythm. No murmur, rub or gallop is appreciated. Respiratory: Respirations are non-labored, breath sounds are equal. Minimal air movement to auscultation inspiratory and expiratory wheeze no stridor, rales, or rhonchi. Gastrointestinal: Soft, non-distended, non-tender abdomen without masses or organomegaly noted. There is no rebound or guarding present. Musculoskeletal: Normal ROM, no tenderness. Strength 5/5. Sensation intact. Radial and DP pulses equal bilaterally 2+. Neurological: A&O x 3. CN II-XII intact grossly, There are no obvious motor or sensory deficits. Coordination appears grossly intact. Speech is normal. Skin: Skin is warm and dry and no rashes or lesions are noted. No calf pain or lower extremity swelling Psychiatric: Cooperative, appropriate mood & affect, normal judgment. Limitations: no limitations Course Vital Signs 08/29/20 08/29/20 08/29/20 07:46 08:57 09:13 Temperature 97.5 F L Pulse Rate 84 84 86 Respiratory 18 18 Rate Blood Pressure 126/80 107/72 O2 Sat by Pulse 91 L 90 L Oximetry 08/29/20 08/29/20 08/29/20 09:22 11:03 11:09 Temperature Pulse Rate 88 80 83 Respiratory Rate Blood Pressure O2 Sat by Pulse Oximetry 08/29/20 11:54 Temperature Pulse Rate 83 Respiratory 18 Rate Blood Pressure 101/72 O2 Sat by Pulse 91 L Oximetry Medical Decision Making - Medical Decision Making Clinical appearance appears most consistent with COPD exacerbation she is very tight and minimally moving air. Patient had some slight improvement states she is feeling better after 2 DuoNeb treatments however has significant decreased air movement and is returning an x-ray wheeze and therefore will be admitted for further treatments IV steroids and further evaluation. Dr. Camara is agreeable to this care plan as well as admission at this time Ventricular rate 89 bpm, SD interval 134 ms, QRS duration 80 ms, QT/QTC 358/435 ms. This is normal sinus with sinus arrhythmia and no ST elevation or depression is appreciated - Lab Data Result diagrams: 08/29/20 08:11 08/29/20 08:11 Lab Results 08/29/20 08/29/20 08/29/20 Range/Units 08:11 08:11 08:11 WBC 8.1 (3.8-10.6) k/uL RBC 5.40 (3.80-5.40) m/uL Hgb 16.3 H (11.4-16.0) gm/dL Hct 47.7 H (34.0-46.0) % MCV 88.3 (80.0-100.0) fL MCH 30.3 (25.0-35.0) pg MCHC 34.2 (31.0-37.0) g/dL RDW 13.3 (11.5-15.5) % Plt Count 232 (150-450) k/uL MPV 9.1 Neutrophils % 53 % Lymphocytes % 25 % Monocytes % 9 % Eosinophils % 10 % Basophils % 1 % Neutrophils # 4.3 (1.3-7.7) k/uL Lymphocytes # 2.0 (1.0-4.8) k/uL Monocytes # 0.7 (0-1.0) k/uL Eosinophils # 0.8 H (0-0.7) k/uL Basophils # 0.1 (0-0.2) k/uL PT 9.5 (9.0-12.0) sec INR 0.9 (<1.2) APTT 22.3 (22.0-30.0) sec Sodium 137 (137-145) mmol/L Potassium 4.4 (3.5-5.1) mmol/L Chloride 107 (98-107) mmol/L Carbon Dioxide 25 (22-30) mmol/L Anion Gap 5 mmol/L BUN 12 (7-17) mg/dL Creatinine 0.70 (0.52-1.04) mg/dL Est GFR (CKD-EPI)AfAm >90 (>60 ml/min/1.73 sqM) Est GFR (CKD-EPI)NonAf >90 (>60 ml/min/1.73 sqM) Glucose 94 (74-99) mg/dL Plasma Lactic Acid [place] (0.7-2.0) mmol/L Calcium 9.3 (8.4-10.2) mg/dL Magnesium 2.0 (1.6-2.3) mg/dL Total Bilirubin 0.6 (0.2-1.3) mg/dL AST 27 (14-36) U/L ALT 19 (4-34) U/L Alkaline Phosphatase 67 (38-126) U/L Troponin I (0.000-0.034) ng/mL Total Protein 6.5 (6.3-8.2) g/dL Albumin 3.6 (3.5-5.0) g/dL Coronavirus (PCR) (Not Detectd) 08/29/20 08/29/20 08/29/20 Range/Units 08:11 08:11 08:11 WBC (3.8-10.6) k/uL RBC (3.80-5.40) m/uL Hgb (11.4-16.0) gm/dL Hct (34.0-46.0) % MCV (80.0-100.0) fL MCH (25.0-35.0) pg MCHC (31.0-37.0) g/dL RDW (11.5-15.5) % Plt Count (150-450) k/uL MPV Neutrophils % % Lymphocytes % % Monocytes % % Eosinophils % % Basophils % % Neutrophils # (1.3-7.7) k/uL Lymphocytes # (1.0-4.8) k/uL Monocytes # (0-1.0) k/uL Eosinophils # (0-0.7) k/uL Basophils # (0-0.2) k/uL PT (9.0-12.0) sec INR (<1.2) APTT (22.0-30.0) sec Sodium (137-145) mmol/L Potassium (3.5-5.1) mmol/L Chloride (98-107) mmol/L Carbon Dioxide (22-30) mmol/L Anion Gap mmol/L BUN (7-17) mg/dL Creatinine (0.52-1.04) mg/dL Est GFR (CKD-EPI)AfAm (>60 ml/min/1.73 sqM) Est GFR (CKD-EPI)NonAf (>60 ml/min/1.73 sqM) Glucose (74-99) mg/dL Plasma Lactic Acid Puma 0.7 (0.7-2.0) mmol/L Calcium (8.4-10.2) mg/dL Magnesium (1.6-2.3) mg/dL Total Bilirubin (0.2-1.3) mg/dL AST (14-36) U/L ALT (4-34) U/L Alkaline Phosphatase (38-126) U/L Troponin I <0.012 (0.000-0.034) ng/mL Total Protein (6.3-8.2) g/dL Albumin (3.5-5.0) g/dL Coronavirus (PCR) Not Detected (Not Detectd) Disposition Clinical Impression: COPD exacerbation, Dyspnea, Wheezing, Cough Disposition: ADMITTED IP TO THIS [facility] Condition: Stable Is patient prescribed a controlled substance at d/c from ED?: No Time of Disposition: 11:35 Decision to Admit Reason: Admit from EC Decision Date: 08/29/20 Decision Time: 11:35
[2020-08-29] MEDS ORDERED: AZITHROMYCIN 500 MG TAB PO SCH (11:45)
[2020-08-29] MEDS ORDERED: ACETAMINOPHEN TAB 500 MG TAB PO PRN (13:40)
[2020-08-29] MEDS ORDERED: ERGOCALCIFEROL 1,250 MCG (50,000 IU) CAPSULE PO SCH (13:45)
--- NOTE | 2020-08-29 14:44 | P.DS ---
Providers Date of admission: 08/29/20 11:34 Attending physician: Marcello Marsh Primary care physician: [facility] Hospital Course: Please refer to HPI for further details Patient Condition at Discharge: Stable Plan - Discharge Summary New Discharge Prescriptions: New Famotidine [Pepcid] 20 mg PO BID #30 tablet predniSONE 10 mg PO DAILY #30 tab Doxycycline [Vibramycin] 100 mg PO BID 5 Days #10 capsule Nicotine 21Mg/24Hr Patch [Habitrol] 1 each TRANSDERM DAILY #14 patch Tiotropium [place] [Spiriva] 1 cap INHALATION DAILY #1 device Budesonide-Formot 160-4.5 Mcg [Symbicort 160-4.5 Mcg Inhaler] 2 puff INHALATION BID #1 inhaler Continue Penicillin V Potassium [Pen Vee K] 500 mg PO BID Acetaminophen Tab [Tylenol] 500 mg PO Q6H PRN PRN Reason: Pain No Action Ibuprofen [Motrin Ib] 400 mg PO Q8H PRN PRN Reason: Pain Ergocalciferol (Vitamin D2) [Vitamin D2 (50,000 Iu)] 1,250 mcg PO MOFR Albuterol Nebulized [Ventolin Nebulized] 2.5 mg INHALATION RT-QID PRN PRN Reason: Shortness Of Breath PARoxetine [Paxil] 20 mg PO HS Fluticasone/Salmeterol [Advair 250-50 Diskus] 1 puff INHALATION RT-BID 30 Days #1 device Albuterol Inhaler [Ventolin Hfa Inhaler] 2 puff INHALATION RT-Q4H PRN 30 Days #1 puff PRN Reason: Wheezing Discharge Medication List Albuterol Nebulized [Ventolin Nebulized] 2.5 mg INHALATION RT-QID PRN 05/22/20 [History] Ergocalciferol (Vitamin D2) [Vitamin D2 (50,000 Iu)] 1,250 mcg PO MOFR 05/22/20 [History] Ibuprofen [Motrin Ib] 400 mg PO Q8H PRN 05/22/20 [History] PARoxetine [Paxil] 20 mg PO HS 05/23/20 [History] Albuterol Inhaler [Ventolin Hfa Inhaler] 2 puff INHALATION RT-Q4H PRN 30 Days #1 puff 05/24/20 [Rx] Fluticasone/Salmeterol [Advair 250-50 Diskus] 1 puff INHALATION RT-BID 30 Days #1 device 05/24/20 [Rx] Acetaminophen Tab [Tylenol] 500 mg PO Q6H PRN 08/29/20 [History] Budesonide-Formot 160-4.5 Mcg [Symbicort 160-4.5 Mcg Inhaler] 2 puff INHALATION BID #1 inhaler 08/29/20 [Rx] Doxycycline [Vibramycin] 100 mg PO BID 5 Days #10 capsule 08/29/20 [Rx] Famotidine [Pepcid] 20 mg PO BID #30 tablet 08/29/20 [Rx] Nicotine 21Mg/24Hr Patch [Habitrol] 1 each TRANSDERM DAILY #14 patch 08/29/20 [Rx] Penicillin V Potassium [Pen Vee K] 500 mg PO BID 08/29/20 [History] Tiotropium [place] [Spiriva] 1 cap INHALATION DAILY #1 device 08/29/20 [Rx] predniSONE 10 mg PO DAILY #30 tab 08/29/20 [Rx] Follow up Appointment(s)/Referral(s): Michelle Moncada MD [STAFF PHYSICIAN] - 3 Days Kamran Coelho MD [STAFF PHYSICIAN] - 1 Week Activity/Diet/Wound Care/Special Instructions: Patient will need 2L home O2 due to COPD Discharge Disposition: HOME SELF-CARE
--- NOTE | 2020-08-29 14:44 | P.HPIM ---
History of Present Illness 50-year-old female came in with compensative shortness of breath found to be in COPD exacerbation was be and examined admission when I evaluated the patient patient wheezing resolved but patient has diminished air entry and is still requiring oxygen. Patient received IV steroids subsequently switched to oral steroids. Initially patient agreed to stay in the hospital, reason for hospitalization is, she is still requiring oxygen and without oxygen patient is desaturating to 87% on room air. Later in the day was informed patient wants to to leave AMA. As patient is already feeling better patient will be discharged on weaning dose of steroids will arrange for home oxygen this can be tapered on her weaned off as an outpatient patient can use to smoke about a pack per day. Is comparing of cough with whitish and sometimes yellowish sputum production. Chest x-ray did not show any pneumonia. Review of Systems REVIEW OF SYSTEMS: CONSTITUTIONAL: No fever, no malaise, no fatigue. HEENT: No recent visual problems or hearing problems. Denied any sore throat. CARDIOVASCULAR: No chest pain, orthopnea, PND, no palpitations, no syncope. PULMONARY:no hemoptysis. GASTROINTESTINAL: No diarrhea, no nausea, no vomiting, no abdominal pain. NEUROLOGICAL: No headaches, no weakness, no numbness. HEMATOLOGICAL: Denies any bleeding or petechiae. GENITOURINARY: Denies any burning micturition, frequency, or urgency. MUSCULOSKELETAL/RHEUMATOLOGICAL: Denies any joint pain, swelling, or any muscle pain. ENDOCRINE: Denies any polyuria or polydipsia. The rest of the 14-point review of systems is negative. Past Medical History Past Medical History: COPD Additional Past Medical History / Comment(s): Psoriasis History of Any Multi-Drug Resistant Organisms: None Reported Past Surgical History: Section Past Anesthesia/Blood Transfusion Reactions: No Reported Reaction Past Psychological History: Anxiety, Depression Smoking Status: Current every day smoker Past Alcohol Use History: None Reported Past Drug Use History: None Reported - Past Family History Mother Additional Family Medical History / Comment(s): ETOH depression Medications and Allergies Home Medications Medication Instructions Recorded Confirmed Type Albuterol Nebulized [Ventolin 2.5 mg INHALATION RT-QID PRN 05/22/20 08/29/20 History Nebulized] Ergocalciferol (Vitamin D2) 1,250 mcg PO MOFR 05/22/20 08/29/20 History [Vitamin D2 (50,000 Iu)] Ibuprofen [Motrin Ib] 400 mg PO Q8H PRN 05/22/20 08/29/20 History PARoxetine [Paxil] 20 mg PO HS 05/23/20 08/29/20 History Albuterol Inhaler [Ventolin Hfa 2 puff INHALATION RT-Q4H PRN 30 05/24/20 08/29/20 Rx Inhaler] Days #1 puff Fluticasone/Salmeterol [Advair 1 puff INHALATION RT-BID 30 Days 05/24/20 08/29/20 Rx 250-50 Diskus] #1 device Acetaminophen Tab [Tylenol Tab] 500 mg PO Q6H PRN 08/29/20 08/29/20 History Budesonide-Formot 160-4.5 Mcg 2 puff INHALATION BID #1 inhaler 08/29/20 Rx [Symbicort 160-4.5 Mcg Inhaler] Doxycycline [Vibramycin] 100 mg PO BID 5 Days #10 capsule 08/29/20 Rx Famotidine [Pepcid] 20 mg PO BID #30 tablet 08/29/20 Rx Penicillin V Potassium [Pen Vee K] 500 mg PO BID 08/29/20 08/29/20 History Tiotropium [place] [Spiriva] 1 cap INHALATION DAILY #1 device 08/29/20 Rx predniSONE 10 mg PO DAILY #30 tab 08/29/20 Rx Allergies Allergy/AdvReac Type Severity Reaction Status Date / Time doxycycline Allergy Rash/Hives Verified 08/29/20 11:55 Physical Exam Vitals: Vital Signs Temp Pulse Resp BP Pulse Ox 08/29/20 11:54 83 18 101/72 91 L 08/29/20 11:09 83 08/29/20 11:03 80 08/29/20 09:22 88 08/29/20 09:13 86 08/29/20 08:57 84 18 107/72 90 L 08/29/20 07:46 97.5 F L 84 18 126/80 91 L Intake and Output 08/28/20 08/29/20 08/29/20 22:59 06:59 14:59 Other: Weight 58.967 kg PHYSICAL EXAMINATION: GENERAL: The patient is alert and oriented x3, not in any acute distress. Well developed, well nourished. HEENT: Pupils are round and equally reacting to light. EOMI. No scleral icterus. No conjunctival pallor. Normocephalic, atraumatic. No pharyngeal erythema. No thyromegaly. CARDIOVASCULAR: S1 and S2 present. No murmurs, rubs, or gallops. PULMONARY: Decreased air entry into bilateral lung michel no significant wheezing or crackles ABDOMEN: Soft, nontender, nondistended, normoactive bowel sounds. No palpable organomegaly. MUSCULOSKELETAL: No joint swelling or deformity. EXTREMITIES: No cyanosis, clubbing, or pedal edema. NEUROLOGICAL: Gross neurological examination did not reveal any focal deficits. SKIN: No rashes. Results CBC & Chem 7: 08/29/20 08:11 08/29/20 08:11 Labs: Abnormal Lab Results - Last 24 Hours (Table) 08/29/20 Range/Units 08:11 Hgb 16.3 H (11.4-16.0) gm/dL Hct 47.7 H (34.0-46.0) % Eosinophils # 0.8 H (0-0.7) k/uL Assessment and Plan Plan: -COPD with acute exacerbation: Patient returns will be discharged on systemic steroids inhalational treatments ideally patient will benefit from one more day of hospitalization as patient doesn't want to stay will arrange for oxygen follow-up with PCP and pulmonary as an outpatient nicotine cessation counseling was provided -Nicotine use: Counseling was provided and patient will be discharged on nicotine patch -Depression
[2020-08-29] MEDS: IPRATROPIUM-ALBUTEROL 3 ML NEB INHALATION SCH ×2 (15:37)
[2020-08-29 16:57] VITALS: BP 111/74; PULSE 101
[2020-08-29] MEDS ORDERED: SYMBICORT 80-4.5 MCG INHALER INHALATION SCH (20:00)
[2020-08-29] MEDS ORDERED: PARoxetine 20 MG TAB PO SCH (21:00)
[2020-08-30] MEDS ORDERED: predniSONE 20 MG TAB PO SCH (09:00)
== END 2020-08-29 18:21 | disposition home or self-care (01) ==
LOC: EC 07:44 → 1SOBS 11:34 → 6NMEDSUR 17:29
PROVIDERS: ADMIT Family Medicine; ATTEND Family Medicine
DX: J44.1 Chronic obstructive pulmonary disease with (acute) exacerbation (principal); F17.210 Nicotine dependence, cigarettes, uncomplicated; L40.9 Psoriasis, unspecified; F32.9 Major depressive disorder, single episode, unspecified; F41.9 Anxiety disorder, unspecified; Z20.822 Contact with and (suspected) exposure to COVID-19; Z79.2 Long term (current) use of antibiotics; Z79.51 Long term (current) use of inhaled steroids; Z79.899 Other long term (current) drug therapy; Z88.1 Allergy status to other antibiotic agents; Z98.891 History of uterine scar from previous surgery; Z81.8 Family history of other mental and behavioral disorders; Z81.1 Family history of alcohol abuse and dependence
CPT/HCPCS: 96374; 99285; 36415; 93005; 83880; 80053; 83605; 83735; 84484; 85025; 85610; 85730; 87635; 71046; G0378 ×2; J2930

== ENCOUNTER 2020-12-10 17:36 | Emergency (ER) | payer MEDICARE, OTHER ==
[2020-12-10] MEDS ORDERED: methylPREDNISolone SOD SUCCI 125 MG/2 ML VIAL IV STA (17:53)
[2020-12-10] MEDS ORDERED: IPRATROPIUM-ALBUTEROL 3 ML NEB INHALATION STA (17:53)
[2020-12-10] MEDS ORDERED: SODIUM CHLORIDE 0.9% 500 ML 500 ML IV STA (17:53)
--- NOTE | 2020-12-10 18:00 | ED ---
SOB HPI - General Chief Complaint: Shortness of Breath Stated Complaint: panic attack/sob Source: patient, RN notes reviewed Mode of arrival: ambulatory Limitations: no limitations - History of Present Illness Initial Comments: 50-year-old tearful white female, alert and oriented 4, comes to the emergency room with complaints of difficulty in breathing and anxiety. Patient states that she did try treatment before coming to the hospital with no relief. She states that she does have a history of COPD and she is a smoker. She states that she has not had a fever and her cough is productive but clear. She states they took her off her clonidine but she doesn't know why and her anxiety has been getting worse. She states that her doctor did give her a little blue pill instead for anxiety but does not know the name. She states that her chest does feel tight she believes its her anxiety COPD. She has no cardiac history. MD Complaint: shortness of breath, chest pain, anxiety -: hour(s) (1) Severity scale (1-10): 4 Quality: other Consistency: constant Improves With: nothing Known History Of: COPD, other (Anxiety ) Context: anxiety Associated Symptoms: denies other symptoms Treatments Prior to Arrival: bronchodilator - Related Data Home Medications Medication Instructions Recorded Confirmed Albuterol Nebulized [Ventolin 2.5 mg INHALATION RT-QID PRN 05/22/20 08/29/20 Nebulized] Ergocalciferol (Vitamin D2) 1,250 mcg PO MOFR 05/22/20 08/29/20 [Vitamin D2 (50,000 Iu)] Ibuprofen [Motrin Ib] 400 mg PO Q8H PRN 05/22/20 08/29/20 PARoxetine [Paxil] 20 mg PO HS 05/23/20 08/29/20 Acetaminophen Tab [Tylenol] 500 mg PO Q6H PRN 08/29/20 08/29/20 Penicillin V Potassium [Pen Vee K] 500 mg PO BID 08/29/20 08/29/20 Previous Rx's Medication Instructions Recorded Albuterol Inhaler [Ventolin Hfa 2 puff INHALATION RT-Q4H PRN 30 05/24/20 Inhaler] Days #1 puff Fluticasone/Salmeterol [Advair 1 puff INHALATION RT-BID 30 Days 05/24/20 250-50 Diskus] #1 device Budesonide-Formot 160-4.5 Mcg 2 puff INHALATION BID #1 inhaler 08/29/20 [Symbicort 160-4.5 Mcg Inhaler] Doxycycline [Vibramycin] 100 mg PO BID 5 Days #10 capsule 08/29/20 Famotidine [Pepcid] 20 mg PO BID #30 tablet 08/29/20 Nicotine 21Mg/24Hr Patch [Habitrol] 1 each TRANSDERM DAILY #14 patch 08/29/20 Tiotropium Holiday [Spiriva] 1 cap INHALATION DAILY #1 device 08/29/20 predniSONE 10 mg PO DAILY #30 tab 08/29/20 predniSONE 50 mg PO DAILY #5 tab 12/10/20 Allergies Allergy/AdvReac Type Severity Reaction Status Date / Time doxycycline Allergy Rash/Hives Verified 12/10/20 17:44 Review of Systems ROS Statement: Those systems with pertinent positive or pertinent negative responses have been documented in the HPI. ROS Other: All systems not noted in ROS Statement are negative. Past Medical History Past Medical History: COPD Additional Past Medical History / Comment(s): Psoriasis History of Any Multi-Drug Resistant Organisms: None Reported Past Surgical History: Section Past Anesthesia/Blood Transfusion Reactions: No Reported Reaction Past Psychological History: Anxiety, Depression, Panic Disorder Smoking Status: Current every day smoker Past Alcohol Use History: None Reported Past Drug Use History: None Reported - Past Family History Mother Additional Family Medical History / Comment(s): ETOH depression General Exam Limitations: no limitations General appearance: alert, in no apparent distress Head exam: Present: atraumatic, normocephalic, normal inspection Eye exam: Present: normal appearance, PERRL, EOMI. Absent: scleral icterus, periorbital swelling Pupils: Present: normal accommodation ENT exam: Present: normal exam, normal oropharynx, mucous membranes moist Neck exam: Present: normal inspection, full ROM. Absent: tenderness, meningismus, lymphadenopathy, thyromegaly Respiratory exam: Present: normal lung sounds bilaterally, wheezes. Absent: respiratory distress, rales, rhonchi, stridor, chest wall tenderness, accessory muscle use, decreased breath sounds Cardiovascular Exam: Present: regular rate, normal rhythm, normal heart sounds. Absent: systolic murmur, diastolic murmur, rubs, gallop, clicks, JVD GI/Abdominal exam: Present: soft, normal bowel sounds. Absent: distended, tenderness, guarding, rebound, rigid Extremities exam: Present: normal inspection, full ROM, normal capillary refill. Absent: tenderness, pedal edema, joint swelling, calf tenderness Back exam: Present: full ROM. Absent: tenderness, CVA tenderness (R), CVA tenderness (L), muscle spasm, paraspinal tenderness, vertebral tenderness Neurological exam: Present: alert, oriented X3, CN II-XII intact Psychiatric exam: Present: anxious Skin exam: Present: warm, dry, intact, normal color. Absent: rash, cyanosis, diaphoretic, erythema, petechiae, pallor, mottled Course Vital Signs 12/10/20 12/10/20 12/10/20 17:40 18:55 18:59 Temperature 98.6 F Pulse Rate 97 90 96 Respiratory 24 18 Rate Blood Pressure 122/77 114/88 O2 Sat by Pulse 92 L 98 Oximetry 12/10/20 19:06 Temperature Pulse Rate 90 Respiratory Rate Blood Pressure O2 Sat by Pulse Oximetry Medical Decision Making - Medical Decision Making WBC count is 8.3, troponin is negative at 0.012, EKG shows sinus rhythm with no ST elevation. Other electrolytes are within normal limits. X-ray shows lungs clear, heart mediastinum normal. no change compared to 08/29/2020. Patient is feeling much better after the treatment and steroids. Oxygen saturation up to 98%. She is comfortable being discharged home and following up with her primary care doctor with strict return parameters of increasing shortness of breath, fevers or chest pain. Case discussed with Dr. Mccord who was agreeable to this plan of care - Lab Data Result diagrams: 12/10/20 18:04 12/10/20 18:04 Lab Results 12/10/20 12/10/20 12/10/20 Range/Units 18:04 18:04 18:04 WBC 8.3 (3.8-10.6) k/uL RBC 5.58 H (3.80-5.40) m/uL Hgb 17.3 H (11.4-16.0) gm/dL Hct 51.1 H (34.0-46.0) % MCV 91.5 (80.0-100.0) fL MCH 30.9 (25.0-35.0) pg MCHC 33.8 (31.0-37.0) g/dL RDW 12.7 (11.5-15.5) % Plt Count 225 (150-450) k/uL MPV 10.0 Neutrophils % 60 % Lymphocytes % 22 % Monocytes % 8 % Eosinophils % 7 % Basophils % 1 % Neutrophils # 4.9 (1.3-7.7) k/uL Lymphocytes # 1.8 (1.0-4.8) k/uL Monocytes # 0.7 (0-1.0) k/uL Eosinophils # 0.5 (0-0.7) k/uL Basophils # 0.1 (0-0.2) k/uL Sodium 138 (137-145) mmol/L Potassium 4.6 (3.5-5.1) mmol/L Chloride 105 (98-107) mmol/L Carbon Dioxide 23 (22-30) mmol/L Anion Gap 10 mmol/L BUN 11 (7-17) mg/dL Creatinine 0.71 (0.52-1.04) mg/dL Est GFR (CKD-EPI)AfAm >90 (>60 ml/min/1.73 sqM) Est GFR (CKD-EPI)NonAf >90 (>60 ml/min/1.73 sqM) Glucose 98 (74-99) mg/dL Calcium 9.7 (8.4-10.2) mg/dL Magnesium 2.2 (1.6-2.3) mg/dL Total Bilirubin 0.4 (0.2-1.3) mg/dL AST 24 (14-36) U/L ALT 13 (4-34) U/L Alkaline Phosphatase 73 (38-126) U/L Troponin I (0.000-0.034) ng/mL Total Protein 7.1 (6.3-8.2) g/dL Albumin 4.2 (3.5-5.0) g/dL Urine Color Yellow Urine Appearance Cloudy H (Clear) Urine pH 6.0 (5.0-8.0) Ur Specific [place] 1.020 (1.001-1.035) Urine Protein Trace H (Negative) Urine Glucose (UA) Negative (Negative) Urine Ketones Negative (Negative) Urine Blood Negative (Negative) Urine Nitrite Negative (Negative) Urine Bilirubin Negative (Negative) Urine Urobilinogen <2.0 (<2.0) mg/dL Ur Leukocyte Esterase Trace H (Negative) Urine RBC 1 (0-5) /hpf Urine WBC 14 H (0-5) /hpf Ur Squamous Epith Cells 9 H (0-4) /hpf Urine Bacteria Rare H (None) /hpf Urine Mucus Many H (None) /hpf Urine Yeast (Budding) Occasional H (None) /hpf 12/10/20 Range/Units 18:04 WBC (3.8-10.6) k/uL RBC (3.80-5.40) m/uL Hgb (11.4-16.0) gm/dL Hct (34.0-46.0) % MCV (80.0-100.0) fL MCH (25.0-35.0) pg MCHC (31.0-37.0) g/dL RDW (11.5-15.5) % Plt Count (150-450) k/uL MPV Neutrophils % % Lymphocytes % % Monocytes % % Eosinophils % % Basophils % % Neutrophils # (1.3-7.7) k/uL Lymphocytes # (1.0-4.8) k/uL Monocytes # (0-1.0) k/uL Eosinophils # (0-0.7) k/uL Basophils # (0-0.2) k/uL Sodium (137-145) mmol/L Potassium (3.5-5.1) mmol/L Chloride (98-107) mmol/L Carbon Dioxide (22-30) mmol/L Anion Gap mmol/L BUN (7-17) mg/dL Creatinine (0.52-1.04) mg/dL Est GFR (CKD-EPI)AfAm (>60 ml/min/1.73 sqM) Est GFR (CKD-EPI)NonAf (>60 ml/min/1.73 sqM) Glucose (74-99) mg/dL Calcium (8.4-10.2) mg/dL Magnesium (1.6-2.3) mg/dL Total Bilirubin (0.2-1.3) mg/dL AST (14-36) U/L ALT (4-34) U/L Alkaline Phosphatase (38-126) U/L Troponin I <0.012 (0.000-0.034) ng/mL Total Protein (6.3-8.2) g/dL Albumin (3.5-5.0) g/dL Urine Color Urine Appearance (Clear) Urine pH (5.0-8.0) Ur Specific [place] (1.001-1.035) Urine Protein (Negative) Urine Glucose (UA) (Negative) Urine Ketones (Negative) Urine Blood (Negative) Urine Nitrite (Negative) Urine Bilirubin (Negative) Urine Urobilinogen (<2.0) mg/dL Ur Leukocyte Esterase (Negative) Urine RBC (0-5) /hpf Urine WBC (0-5) /hpf Ur Squamous Epith Cells (0-4) /hpf Urine Bacteria (None) /hpf Urine Mucus (None) /hpf Urine Yeast (Budding) (None) /hpf - EKG Data EKG shows normal: sinus rhythm (Ventricular rate is 93, [place] interval 0.132, QRS of 0.80, QTC of 0.447) Disposition Clinical Impression: COPD exacerbation Disposition: HOME SELF-CARE Condition: Good Instructions (If sedation given, give patient instructions): COPD (Chronic Obstructive Pulmonary Disease) (ED) Additional Instructions: Take the prednisone as prescribed. Follow-up with the primary care doctor in 1 week. Return to the emergency room with any worsening symptoms including shortness of breath, fever, or chest pain. Prescriptions: predniSONE 50 mg PO DAILY #5 tab Is patient prescribed a controlled substance at d/c from ED?: No Referrals: Marcello Marsh Jr, DO [Primary Care Provider] - 1-2 days Time of Disposition: 19:34
[2020-12-10] MEDS ORDERED: LORazepam 2 MG/ML INJ IV STA (18:09)
[2020-12-10 18:27] LABS: Basophils # (A) 0.1 k/uL (0-0.2); Basophils % (A) 1 %; Eosinophils # (A) 0.5 k/uL (0-0.7); Eosinophils % (A) 7 %; HCT 51.1 % (34.0-46.0); HGB 17.3 gm/dL (11.4-16.0); Lymphocytes # (A) 1.8 k/uL (1.0-4.8); Lymphocytes % (A) 22 %; MCH 30.9 pg (25.0-35.0); MCHC 33.8 g/dL (31.0-37.0); MCV 91.5 fL (80.0-100.0); Monocytes # (A) 0.7 k/uL (0-1.0); Monocytes % (A) 8 %; Neutrophils # (A) 4.9 k/uL (1.3-7.7); Neutrophils % (A) 60 %; Platelet Count 225 k/uL (150-450); RBC 5.58 m/uL (3.80-5.40); RDW 12.7 % (11.5-15.5); WBC 8.3 k/uL (3.8-10.6)
[2020-12-10 18:42] LABS: ALT 13 U/L (4-34); AST 24 U/L (14-36); African American GFR (CKD) >90 (>60 ml/min/1.73 sqM); Albumin 4.2 g/dL (3.5-5.0); Alkaline Phosphatase 73 U/L (38-126); Anion Gap 10 mmol/L; Blood Urea Nitrogen 11 mg/dL (7-17); Calcium 9.7 mg/dL (8.4-10.2); Carbon Dioxide 23 mmol/L (22-30); Chloride 105 mmol/L (98-107); Glucose 98 mg/dL (74-99); Magnesium 2.2 mg/dL (1.6-2.3); Non-African American GFR(CKD) >90 (>60 ml/min/1.73 sqM); Potassium 4.6 mmol/L (3.5-5.1); Sodium 138 mmol/L (137-145); Total Bilirubin 0.4 mg/dL (0.2-1.3); Total Protein 7.1 g/dL (6.3-8.2)
[2020-12-10 18:46] LABS: Appearance,Urine Cloudy (Clear); Bacteria,Urine Rare /hpf; Bilirubin,Urine Negative (Negative); Blood,Urine Negative (Negative); Budding Yeast,Urine Occasional /hpf; Color,Urine Yellow; Glucose,Urine (UA) Negative (Negative); Ketones,Urine Negative (Negative); Leukocyte Esterase,Urine Trace (Negative); Mucus,Urine Many /hpf; Nitrite,Urine Negative (Negative); Protein,Urine Trace (Negative); RBC,Urine 1 /hpf (0-5); Squamous Epithelial Cell,Urine 9 /hpf (0-4); Urobilinogen,Urine <2.0 mg/dL (<2.0); WBC,Urine 14 /hpf (0-5)
[2020-12-10 19:01] VITALS: RESP 18
[2020-12-10 19:07] VITALS: PULSE 90
--- NOTE | 2020-12-10 19:13 | XR ---
EXAMINATION TYPE: XR chest 2V DATE OF EXAM: 12/10/2020 COMPARISON: 08/29/2020 HISTORY: Short of breath TECHNIQUE: FINDINGS: Heart and mediastinum are normal. Lungs are clear. Diaphragm is normal. Bony thorax appears normal. IMPRESSION: Normal chest. No change.
[2020-12-10 19:47] VITALS: BP 125/87; TEMP 98.7
== END 2020-12-10 19:46 | disposition home or self-care (01) ==
LOC: EC 17:36
DX: J44.1 Chronic obstructive pulmonary disease with (acute) exacerbation (principal); F17.200 Nicotine dependence, unspecified, uncomplicated; Z88.1 Allergy status to other antibiotic agents
CPT/HCPCS: 36415; 94640; 93005; 80053; 83735; 84484; 85025; 81001; 87086; 71046; 99285; 96374; 96375; 96361; J2060; J2930